=== PATIENT | female | born 1985 | race Caucasian/White ===

== ENCOUNTER 2018-05-06 17:08 | Emergency (ER) | payer MEDICAID ==
--- NOTE | 2018-05-06 17:38 | ER Document Report ---
ED General - General Stated Complaint: POSSIBLE OVERDOSE Time Seen by Provider: 05/06/18 17:17 Mode of Arrival: Medic Information source: Patient Notes: 32-year-old female brought in by EMS for overdose. Patient's daughter approximately 3 months ago. Monday was her birthday. Patient took 4 mg of Ativan at 4 PM in a suicide attempt. This was prescribed to her by her family physician. Not on any other medications. She denies any other drug ingestions. EMS and police were on scene. - HPI Onset: Other - 4 PM Onset/Duration: Sudden Quality of pain: No pain Associated symptoms: None Exacerbated by: Denies Relieved by: Denies - Related Data Allergies/Adverse Reactions: amoxicillin Allergy (Verified 05/06/18 17:39) Penicillins Allergy (Verified 05/06/18 17:39) Past Medical History - General Information source: Patient - Social History Smoking Status: Current Every Day Smoker Family History: Reviewed & Not Pertinent Review of Systems - Review of Systems Constitutional: No symptoms reported EENT: No symptoms reported Cardiovascular: No symptoms reported Respiratory: No symptoms reported Gastrointestinal: No symptoms reported Genitourinary: No symptoms reported Female Genitourinary: No symptoms reported Musculoskeletal: No symptoms reported Skin: No symptoms reported Hematologic/Lymphatic: No symptoms reported Neurological/Psychological: Suicidal ideation Physical Exam - Vital signs Vitals: Resp BP Pulse Ox 20 117/85 100 05/06/18 17:33 05/06/18 17:33 05/06/18 17:33 - Notes Notes: PHYSICAL EXAMINATION: GENERAL: Drowsy. Tearful. HEAD: Atraumatic, normocephalic. EYES: Pupils equal round and reactive to light, extraocular movements intact, conjunctiva are normal. ENT: Nares patent, oropharynx clear without exudates. Moist mucous membranes. NECK: Normal range of motion, supple without lymphadenopathy LUNGS: Breath sounds clear to auscultation bilaterally and equal. No wheezes rales or rhonchi. HEART: Regular rate and rhythm without murmurs ABDOMEN: Soft, nontender, nondistended abdomen. No guarding, no rebound. No masses appreciated. Female : deferred Musculoskeletal: Normal range of motion, no pitting or edema. No cyanosis. NEUROLOGICAL: Cranial nerves grossly intact. Normal speech, normal gait. Normal sensory, motor exams PSYCH: Depressed. Suicidal ideations. Denies homicidal ideations. SKIN: Warm, Dry, normal turgor, no rashes or lesions noted. Course - Re-evaluation Re-evalutation: 05/06/18 17:38 Poison control contacted. They recommend labs, EKG, observing the patient for 6 hours after the time of ingestion. They do not recommend giving flumazenil at this time. 05/06/18 17:48 EKG: Ventricular rate 87, IN interval 120, QRS duration 92, QTc 482, sinus rhythm. No ST segment elevation. 05/06/18 23:30 Cocaine and marijuana seen in the urine tox screen. On reevaluation, patient's vital signs are stable. Patient is awake, alert, eating in the room. We will have behavioral health evaluate the patient in the morning. Patient signed out to oncoming provider. 05/06/18 23:31 - Vital Signs Vital signs: Temp Pulse Resp BP Pulse Ox 97.8 F 16 126/88 H 100 05/06/18 18:00 05/06/18 22:01 05/06/18 22:00 05/06/18 22:01 - Laboratory Result Diagrams: 05/06/18 16:53 05/06/18 16:53 Laboratory results interpreted by me: 05/06/18 05/06/18 16:53 16:53 RDW 15.8 H Sodium 147.1 H AST 81 H ALT 138 H Salicylates < 1.0 L Acetaminophen < 10 L Discharge - Discharge Clinical Impression: Suicide attempt Condition: Stable
[2018-05-06 18:32] LABS: ABSOLUTE EOSINOPHILS # (AUTO) 0.1 10^3/uL (0.0-0.6); ABSOLUTE LYMPHOCYTES (AUTO) 3.6 10^3/uL (0.5-4.7); ABSOLUTE MONOCYTES (AUTO) 0.4 10^3/uL (0.1-1.4); ABSOLUTE NEUT (AUTO) 4.5 10^3/uL (1.7-8.2); BASOPHILS % (AUTO) 0.5 % (0-2); EOSINOPHILS % (AUTO) 0.6 % (0-6); HEMOGLOBIN 13.9 g/dL (12.0-15.5); LYMPHOCYTES % (AUTO) 41.6 % (13-45); MEAN CORPUSCULAR HEMOGLOBIN 28.8 pg (27.0-33.4); MEAN CORPUSCULAR HGB CONC 33.9 g/dL (32.0-36.0); MEAN CORPUSCULAR VOLUME 85 fl (80-97); PLATELET COUNT 243 10^3/uL (150-450); RED BLOOD COUNT 4.83 10^6/uL (3.72-5.28); RED CELL DISTRIBUTION WIDTH 15.8 % (11.5-14.0); SEGMENTED NEUTROPHILS % (AUTO) 52.3 % (42-78); TOTAL CELLS COUNTED % (AUTO) 100 %; WHITE BLOOD COUNT 8.6 10^3/uL (4.0-10.5)
[2018-05-06 18:46] LABS: ACETAMINOPHEN < 10 ug/mL (10-30); ALANINE AMINOTRANSFERASE 138 U/L (9-52); ALBUMIN 4.5 g/dL (3.5-5.0); ALCOHOL 166 mg/dL (NONE DETECTED); ALKALINE PHOSPHATASE 112 U/L (38-126); ANION GAP 12 (5-19); ASPARTATE AMINO TRANSFERASE 81 U/L (14-36); BILIRUBIN,DIRECT 0.4 mg/dL (0.0-0.4); BILIRUBIN,TOTAL 0.4 mg/dL (0.2-1.3); BLOOD UREA NITROGEN 7 mg/dL (7-20); CALCIUM 9.5 mg/dL (8.4-10.2); CARBON DIOXIDE 28 mmol/L (22-30); CHLORIDE 107 mmol/L (98-107); GLUCOSE 81 mg/dL (75-110); POTASSIUM 3.8 mmol/L (3.6-5.0); SALICYLATE < 1.0 mg/dL (2.0-20.0); SODIUM 147.1 mmol/L (137-145); TOTAL PROTEIN 8.1 g/dL (6.3-8.2)
[2018-05-06 22:41] LABS: URINE AMPHETAMINES SCREEN NEGATIVE; URINE BARBITURATES SCREEN NEGATIVE; URINE BENZODIAZEPINES SCREEN NEGATIVE; URINE COCAINE SCREEN UNCONFIRMED POSITIVE; URINE MARIJUANA (THC) SCREEN UNCONFIRMED POSITIVE; URINE METHADONE SCREEN NEGATIVE; URINE PHENCYCLIDINE SCREEN NEGATIVE
--- NOTE | 2018-05-07 00:42 | EKG REPORT ---
SEVERITY:- BORDERLINE ECG - SINUS RHYTHM BORDERLINE PROLONGED QT INTERVAL : Confirmed by: Prema Milan 07-May-2018 00:41:27
[2018-05-07] MEDS ORDERED: TRAZODONE HCL 50 MG TABLET PO ONE (00:50)
[2018-05-07] MEDS ORDERED: MIRTAZAPINE 15 MG TABLET PO SCH (10:00)
[2018-05-07] MEDS ORDERED: LAMOTRIGINE 100 MG TABLET PO SCH (10:00)
--- NOTE | 2018-05-07 10:22 | PSYCHOLOGICAL NOTE ---
Psych Note - Psych Note Date seen by psych provider: 05/07/18 Time seen by psych provider: 07:55 Psych Note: Reason for Consult: intentional overdose consent permissions: patient refused EMS states they were called to scene by [facility] for intentional overdose, pt took ativan 0.5mg x 8 at approximately 1600. EMS states that pts daughter apx 3 months ago and Monday was her birthday. pt's significant other was on scene and supposedly was taken into custody for unknown reason, another child on scene was being evaluated by DSS. Patient reports that she came to [facility] ED via EMS for an overdose but states she does not know on what. She continues to report that she does not know who called EMS. She states that yesterday she intentionally overdosed because her boyfriend and her were arguing. She denies that she is ever done anything like this before. She discloses that she knows she has a diagnosis however does not know what that is and receives outpatient therapy through [facility]. She disclosed that she was supposed to have therapy appointment before Monday and had to do walk-ins however she never had therapy: "That is probably why I am here like this." She reports that she does take Lamictal, Remeron, and Ativan. She reports that she sometimes uses cocaine and marijuana however states that it is random. When asked if she is interested in sobriety she states that her life is for the most part "pretty sober" is very rare when she actually uses. When asked if she is glad that she was not seriously injured and at [facility] for assistance she reports "no... I am not glad to be here." Clinician attempted to contact DSS; they report they have no record of responding to a scene yesterday. Clinician attempted to call [place] [employer]; they report they have no record of responding. Clinician attempted to contact [facility]'s department; they report they have no record of responding. Clinician attempted to contact EMS; they report the [address] wandering in and out of traffic. They disclosed the patient was under the influence and stated that she intentionally overdosed and was trying to kill herself. They confirm that [place] [employer] were on scene. They disclosed the report does not indicate any additional information in regards to another child, DSS, or an arrest. Clinician contacted [facility]; system down need to call back later. Clinician was able to contact later and was told the patient goes to the [place] location. Patient is alert and orientated to person, place, time and circumstance. Mood is irritable with congruent affect. Patient confirms intentional overdose with intent to harm herself. Patient denies homicidal ideation. Delusions are absent behaviors congruent with intact reality based presentation i.e. organized and linear thought process. Eye contact was poor. Conversational speech was short and clearly communicated her irritability. Intellectual abilities appear to be within the average range. Attention and concentration are poor. Insight, judgment, impulse control are poor. Diagnosis V62.82 (Z63.4) uncomplicated bereavement 296.30 (F33.9) major depressive disorder; recurrent, unspecified per history provided by patient's outpatient mental health provider, [facility] 292.9 (F12.99) specified cannabis related disorder per history provided by patient's outpatient mental health provider, [facility] 292.9 (F14.99) unspecified cocaine use disorder per history provided by patient' s outpatient mental health provider, [facility] Impression/Plan: Patient is recommended for IVC. Patient minimally engages my: She admits to intentionally overdosing. Patient's daughter approximately 3 months ago with a trigger on Monday being her birthday. (Patient was transported to [facility] with an urn in her arms). She reports she was unable to get any therapeutic services last week. Patient is irritable and reports she is not glad she was uninjured. Patient was accepted to [facility]; transportation has been requested. Dr. Farooq was consulted and the care management this patient; attending physicians in agreement with recommendations and disposition
--- NOTE | 2018-05-07 15:12 | ER Document Report ---
Doctor's Note Notes: 05/07/18 15:12 Rounds: Chart reviewed and patient interviewed. Being evaluated for suicidal ideation. Vital signs all normal. Labs with ETOH 166 and drug screen positive for cocaine and MJ. Patient appears to be stable for transfer or discharge. Chrystal Stokes MD
[2018-05-07 16:03] VITALS: BP 114/92
== END 2018-05-07 15:45 ==
LOC: ER 17:08
DX: T42.4X2A Poisoning by benzodiazepines, intentional self-harm, initial encounter (principal); R40.0 Somnolence; F32.9 Major depressive disorder, single episode, unspecified; F12.90 Cannabis use, unspecified, uncomplicated; F14.90 Cocaine use, unspecified, uncomplicated; F17.200 Nicotine dependence, unspecified, uncomplicated; Z79.899 Other long term (current) drug therapy; Z63.4 Disappearance and death of family member; Z88.0 Allergy status to penicillin
CPT/HCPCS: 93005; 99285; 36415; 80307 ×4; 85025; 81025; 80053; 93010; J3490 ×3

== ENCOUNTER 2019-03-15 23:00 | Emergency (ER) | payer SELFPAY ==
[2019-03-16 00:09] LABS: ABSOLUTE EOSINOPHILS # (AUTO) 0.1 10^3/uL (0.0-0.6); ABSOLUTE LYMPHOCYTES (AUTO) 2.3 10^3/uL (0.5-4.7); ABSOLUTE MONOCYTES (AUTO) 0.4 10^3/uL (0.1-1.4); ABSOLUTE NEUT (AUTO) 2.3 10^3/uL (1.7-8.2); BASOPHILS % (AUTO) 0.6 % (0-2); EOSINOPHILS % (AUTO) 1.3 % (0-6); HEMATOCRIT 34.7 % (36.0-47.0); HEMOGLOBIN 11.4 g/dL (12.0-15.5); LYMPHOCYTES % (AUTO) 44.8 % (13-45); MEAN CORPUSCULAR HEMOGLOBIN 25.5 pg (27.0-33.4); MEAN CORPUSCULAR HGB CONC 32.7 g/dL (32.0-36.0); MEAN CORPUSCULAR VOLUME 78 fl (80-97); PLATELET COUNT 209 10^3/uL (150-450); RED BLOOD COUNT 4.46 10^6/uL (3.72-5.28); RED CELL DISTRIBUTION WIDTH 17.7 % (11.5-14.0); SEGMENTED NEUTROPHILS % (AUTO) 45.3 % (42-78); TOTAL CELLS COUNTED % (AUTO) 100 %; WHITE BLOOD COUNT 5.2 10^3/uL (4.0-10.5)
[2019-03-16 00:15] LABS: APPEARANCE,URINE SLIGHTLY-CLOUDY; BILIRUBIN,URINE NEGATIVE (NEGATIVE); COLOR,URINE YELLOW; GLUCOSE, URINE NEGATIVE (NEGATIVE); KETONES,URINE NEGATIVE (NEGATIVE); LEUKOCYTE ESTERASE,URINE MODERATE (NEGATIVE); NITRITE,URINE NEGATIVE (NEGATIVE); PROTEIN,URINE NEGATIVE (NEGATIVE); URINE SPECIFIC GRAVITY 1.009; UROBILINOGEN,URINE NEGATIVE mg/dL (<2.0)
[2019-03-16 00:22] LABS: ACETAMINOPHEN < 10 ug/mL (10-30); ALBUMIN 4.7 g/dL (3.5-5.0); ALCOHOL < 10 mg/dL (NONE DETECTED); ALKALINE PHOSPHATASE 93 U/L (38-126); ANION GAP 11 (5-19); ASPARTATE AMINO TRANSFERASE 58 U/L (14-36); BILIRUBIN,DIRECT 0.2 mg/dL (0.0-0.4); BILIRUBIN,TOTAL 0.2 mg/dL (0.2-1.3); BLOOD UREA NITROGEN 10 mg/dL (7-20); CALCIUM 9.8 mg/dL (8.4-10.2); CARBON DIOXIDE 29 mmol/L (22-30); CHLORIDE 99 mmol/L (98-107); GLUCOSE 104 mg/dL (75-110); POTASSIUM 4.2 mmol/L (3.6-5.0); SALICYLATE < 1.0 mg/dL (2.0-20.0); TOTAL PROTEIN 7.8 g/dL (6.3-8.2)
[2019-03-16 00:28] LABS: URINE AMPHETAMINES SCREEN NEGATIVE; URINE BARBITURATES SCREEN NEGATIVE; URINE BENZODIAZEPINES SCREEN NEGATIVE; URINE COCAINE SCREEN NEGATIVE; URINE MARIJUANA (THC) SCREEN NEGATIVE; URINE METHADONE SCREEN NEGATIVE; URINE PHENCYCLIDINE SCREEN NEGATIVE
--- NOTE | 2019-03-16 01:42 | ER Document Report ---
ED Psych Disorder / Suicide - General Chief Complaint: Suicidal Ideation Stated Complaint: SUICIDAL THOUGHTS Time Seen by Provider: 03/16/19 01:25 Notes: Patient is a 33-year-old female that comes emergency department by GIOVANNA feliciano from [facility] for chief complaint of homicidal statements and ideations. Patient already has IVC paperwork completed by law enforcement. Patient states that she went to the nurse desk and asked for medications, she states that the nurse "delayed giving her the medications", she states after this that the nurse said that "her medications have been discontinued", patient states she needs the medications because she is trying to remain calm because she still struggles with the of her daughter especially around this time of year. Patient states that when she could not get her medication she became very angry, she states that she wanted to "jump through the medication window and strangle the porch chops out of the nurse". I asked her if she still feels this way, she states that she would love to get her hands on the nurse and hurt her. She denies SI although the IVC paperwork completed by law enforcement states that patient was threatening to kill herself. Patient is diagnosed with bipolar disorder and is on multiple medications for this. She denies any sick symptoms. - Related Data Allergies/Adverse Reactions: amoxicillin Allergy (Verified 05/06/18 17:39) Penicillins Allergy (Verified 05/06/18 17:39) Past Medical History - General Information source: Patient - Social History Smoking Status: Unknown if Ever Smoked Frequency of alcohol use: None Drug Abuse: None Lives with: Alone Family History: Reviewed & Not Pertinent Renal/ Medical History: Denies: Hx Peritoneal Dialysis Psychiatric Medical History: Reports: Hx Bipolar Disorder Surgical Hx: Negative - Immunizations Hx Diphtheria, Pertussis, Tetanus Vaccination: Yes Review of Systems - Review of Systems Constitutional: No symptoms reported EENT: No symptoms reported Cardiovascular: No symptoms reported Respiratory: No symptoms reported Gastrointestinal: No symptoms reported Genitourinary: No symptoms reported Female Genitourinary: No symptoms reported Musculoskeletal: No symptoms reported Skin: No symptoms reported Hematologic/Lymphatic: No symptoms reported Neurological/Psychological: See HPI Physical Exam - Vital signs Vitals: Temp Pulse Resp BP Pulse Ox 98.0 F 98 16 99/61 L 96 03/15/19 23:20 03/15/19 23:20 03/15/19 23:20 03/15/19 23:20 03/15/19 23:20 - Notes Notes: GENERAL: Alert, interacts well. No acute distress. HEAD: Normocephalic, atraumatic. EYES: Pupils equal, round, and reactive to light. Extraocular movements intact. ENT: Oral mucosa moist, tongue midline. Oropharynx unremarkable. Airway patent. Nares patent, no nasal septal hematoma LUNGS: Clear to auscultation bilaterally, no wheezes, rales, or rhonchi. No respiratory distress. HEART: Regular rate and rhythm. No murmur ABDOMEN: Soft, non-tender. Non-distended. Bowel sounds present in all 4 quadrants. GENITOURINARY: Deferred EXTREMITIES: Moves all 4 extremities spontaneously. No edema, normal radial and dorsalis pedis pulses bilaterally. No cyanosis. BACK: no cervical, thoracic, lumbar midline tenderness. No saddle anesthesia, normal distal neurovascular exam. Moves all extremities in full range of motion. NEUROLOGICAL: Alert and oriented x3. Normal speech. Cranial nerves II through XII grossly intact. PSYCH: Patient became animated when talking about the incident before, she spoke rapidly and slightly anxiously at that time, however otherwise patient is calm, cooperative, makes good eye contact, does not appear to be responding to internal stimuli. SKIN: Warm, dry, normal turgor. No rashes or lesions noted. Course - Re-evaluation Re-evalutation: Patient alert, well-appearing. Vital signs unremarkable (blood pressure slightly low, repeated and found to be normal without intervention). CBC, chemistry, EKG, urinalysis unremarkable. Urine drug screen negative. Patient is not combative, argumentative, or difficult. She is cooperative and calm. Patient is medically cleared, already on IVC papers from law enforcement, [facility] mental health team evaluation in the morning. Patient was discussed with Dr. Olmedo. 03/16/19 03:50 Patient states she normally takes Zanaflex and at [facility] they were giving her Flexeril instead, she is requesting this to help her muscles relax so she can sleep. She was provided with this. - Vital Signs Vital signs: Temp Pulse Resp BP Pulse Ox 97.7 F 90 16 123/79 100 03/16/19 03:45 03/16/19 03:45 03/16/19 03:45 03/16/19 03:45 03/16/19 03:45 - Laboratory Result Diagrams: 03/15/19 23:47 03/15/19 23:47 Laboratory results interpreted by me: 03/15/19 03/15/19 03/15/19 23:47 23:47 23:47 Hgb 11.4 L Hct 34.7 L MCV 78 L MCH 25.5 L RDW 17.7 H AST 58 H Ur Leukocyte Esterase MODERATE H Salicylates < 1.0 L Acetaminophen < 10 L - EKG Interpretation by Me Additional EKG results interpreted by me: EKG shows sinus rhythm at a rate of 79, QTC of 464, RI interval 128, normal axis, borderline inferior Q waves, no T wave inversions or ST segment changes in consecutive leads. Discharge - Discharge Clinical Impression: Homicidal ideations Condition: Stable Disposition: PSYCH HOSP/UNIT
[2019-03-16] MEDS ORDERED: CYCLOBENZAPRINE HCL 10 MG TABLET PO ONE (03:49)
[2019-03-16] MEDS ORDERED: MAG HYDROX/AL HYDROX/SIMETH SUSP 30 ML UDCUP PO ONE (06:07)
--- NOTE | 2019-03-16 09:09 | EKG REPORT ---
SEVERITY:- ABNORMAL ECG - SINUS RHYTHM PROBABLE LEFT VENTRICULAR HYPERTROPHY INFERIOR Q WAVES, PROBABLY NORMAL VARIATION : Confirmed by: Prema Milan 16-Mar-2019 09:08:19
--- NOTE | 2019-03-16 09:59 | ER Document Report ---
Doctor's Note Notes: 03/16/19 09:57 I have evaluated this pt. this am and she has no c/o a this time. She feels all of her needs are being met and her physical exam is normal. She is awaiting disposition per mental health.
--- NOTE | 2019-03-16 11:19 | PSYCHOLOGICAL NOTE ---
Psych Note - Psych Note Date seen by psych provider: 03/16/19 Time seen by psych provider: 08:20 Psych Note: Reason for Consult: IVC Patient is a 33-year-old female that comes emergency department [facility] for chief complaint of homicidal statements and ideations. Patient discloses that she had a "meltdown" while staying at [facility]. She disclosed she had been in their facility for approximately 4 days. She went to the medication window and was told she had to wait until 8:00 for meds so when she went back she found out that all of her PRN medications were discontinued by the attending physician. She disclosed that she just spoke with the physician earlier in the day and he never told her he was going to do that. When she asked to speak with the provider, "the nurse got rude." She disclosed that she became "hostile there is no other word for it I was hostile." She states that the nurse told her to back up from the window that she could help another patient; however, she states the patient was down the [place] speaking with s omebody else so I told her I was not going to leave. She continued report that the nurse had an attitude" which escalated. She states that she told the nurse "you are being a bitch and then went to reach through this window." She reports that she is very dependent on her medications, that she physically needs them and she lost a child. She states that 15 months ago her 7-month-old baby while in the [facility]. She went to 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 She has an outpatient mental health provider through [facility]. She continued to state that she is currently waiting to get into a six-month program and was hoping that she was able to go back to [facility] until it is available. She reports that she is willing to follow all the rules and take the medications as prescribed. Clinician called [facility]. They disclosed that the patient had been with near facilities with no incidences until last night. Patient was unable to be de-escalated and it became a danger to all providers and patients in the facility. Patient was in the process of being discharged already so was unable to come back to [facility] since she is no longer showing any signs of detox. They continue to disclose that they have been working with the patient to get into [facility] however she needs to contact [facility] to request a referral to be put in. [facility] do phone interview so on Monday morning she should call [phone] do the interview. Plan for discharge was the patient's parents were going to metal pickling equipment operator the patient and let her stay with them until there was a bed available at [facility]. Patient is alert and orientated to person, place time and circumstance. Mood is euthymic with congruent affect. Patient denies suicidal and homicidal ideation. Delusions are absent and behavior is congruent with an intact reality based presentation; ie organized and linear thought process.
[2019-03-16 12:02] VITALS: BP 137/89
== END 2019-03-16 12:02 | disposition home or self-care (01) ==
LOC: ER 23:00
DX: R45.850 Homicidal ideations (principal); Z88.0 Allergy status to penicillin
CPT/HCPCS: 36415; 80053; 80307; 81001; 81025; 85025; 87086; 87088; 87186; 93005; 93010; 99285